=== PATIENT | male | born 1990 | race Caucasian/White ===

== ENCOUNTER 2023-06-23 18:33 | Emergency (ER) | payer MEDICAID, SELFPAY ==
[2023-06-23 18:34] VITALS: BP 127/80; PULSE 74; RESP 16; TEMP 36.1; O2SAT 100; BMI 22.9
--- NOTE | 2023-06-23 19:14 | ED.VIS.LOWEX ---
HPI History of Present Illness Chief Complaint: Lower Extremity Injury Informant: patient and parent Narrative Narrative: Presents for increasing pain in his toes after being stepped on at noon today. He is status post toe fractures 3 weeks ago after dropping a safe on it. Surgery performed 2 weeks ago in [facility]. He is visiting here for 3 days for an auction. He left his pain medications at home due to not needing it. Increasing pain since being stepped on. He has a boot on. He states the wires moved sideways. Prior similar symptoms: Yes PFSH PFSH Medical History no medical history Home Medications hydrocodone-acetaminophen 5-325mg 5mg-325mg 1 tab PO Q6H PRN PRN Pain 3 days #12 TABLETS 06/23/23 [Rx Last Taken Unknown] Allergy/AdvReac Type Severity Reaction Status Date / Time No Known Allergies Allergy Verified 06/23/23 18:34 Social History Smoking Status: Unknown if ever smoked ROS ROS ED Constitutional Constitutional ED: Denies chills, fever(s) or sweats Eyes Eyes: Denies change in vision ENT ENT ED: Denies dysphagia or sore throat Cardiovascular Cardiovascular: Denies chest pain, leg edema, palpitations or racing heartbeat Respiratory/Chest Respiratory/Chest: Denies cough, dyspnea or dyspnea on exertion Gastrointestinal Gastrointestinal: Denies abdominal pain, diarrhea, nausea or vomiting Genitourinary Genitourinary ED: Denies dysuria, hematuria or urinary frequency Musculoskeletal Musculoskeletal: Reports extremity pain; Denies back pain or neck pain Integumentary Denies rash or wounds Neurologic Neurologic: Denies headache(s), paresthesias or weakness EXAM Physical Exam Const Vital Signs: 06/23/23 18:34 Temperature 97.0 F L Temperature Source Temporal Pulse Rate 74 Respiratory Rate 16 Blood Pressure 127/80 H Blood Pressure Mean 95 Pulse Ox 100 Oxygen Delivery Method Room Air Positive well nourished and well developed General Appearance ED: well developed and NAD HEENT Reports moist mucous membranes normocephalic and atraumatic Eyes PERRL, EOMs intact bilaterally and conjunctivae normal General Eye ED: Yes normal appearance of both eyes Neck no lymphadenopathy and supple General: Negative for tenderness Chest Wall Chest: Negative for tenderness Resp normal respiratory effort and normal air movement Effort and Inspection: symmetric chest movement; Negative for respiratory distress Cardio regular rate, regular rhythm and no murmurs Peripheral Pulses: pulses 2+ throughout GI normal to inspection, nondistended, normoactive bowel sounds and non-tender Palpation: Negative for guarding or rebound tenderness present Back/Spine no CVA tenderness and no thoracic nor lumbar tenderness Extremity Extremity Narrative: Right lower extremity: Walking boot removed. K wires to the great toe second through third toe, great toe and second toe K wires rotated laterally in the upright with a preformed 90 degree angle. There is mild redness to the second great toe. No drainage. There was stitches to the lateral first metatarsal clean, dry, intact. General Extremety ED: Negative for edema or tenderness General Extremity: Negative for edema Neuro oriented x3 and no sensory deficits noted Sensorium / Orientation: awake and alert Skin no rashes or lesions noted and no wounds MDM MDM MDM Narrative Medical decision making narrative: Interventions / MDM: Differential diagnosis: Foot contusion, postop surgery, hardware malformation Diagnosis considered but do not suspect: N/A My EKG interpretation: N/A Imaging independently reviewed and interpreted by myself: Right foot x-ray 3 views: K wires intact, with healing fractures. External documents reviewed: N/A Test considered but not ordered:N/A ED course: Patient postop to crush injury. He is from out of town. Treated with [facility] x-ray obtained. [facility] report. Had no prescriptions in this state. X-ray notes K wires intact and not bent. Wires realigned by radiology department. 12 tabs were ordered for meds to bed to take as needed as he is here until Tuesday. Re-evaluation: stable Disposition discussed with patient/family/significant other: Patient Case discussed with consulting clinician: N/A This note was generated with [employer] dictation software. It may contain incorrect words, spelling, and punctuation that were not noted in checking the note before signing. Radiography Diagnostic Testing: Clinical Impression(s) from Imaging Studies Foot X-Ray 06/23/23 19:20 IMPRESSION: Healing fracture of the second and third metatarsal heads with postoperative changes first through third toes. Electronically Signed: Poonam Swift MD at 19:57 EDT , Discharge Plan Triage Chief Complaint: Lower Extremity Injury ED Provider: Brenton May Dx/Rx/DC Orders Clinical Impression: Post-op foreign body, Contusion of right foot Instructions: ED Foot Contusion Prescriptions: New hydrocodone-acetaminophen [hydrocodone-acetaminophen] 5-325 mg tablet 1 tab PO Q6H PRN PRN (Reason: Pain) 3 Days Qty: 12 0RF Primary Care Provider: Care Physician,No Primary Referrals: Care Physician,No Primary [Primary Care Provider] - Activity Restrictions/Additional Instructions: X-ray right foot notes K wires intact. Take pain medicine as prescribed. Follow-up with your surgeon back home. Disposition Disposition: Home, Self Care Discharge Date/Time: 06/23/23 20:49
[2023-06-23] MEDS: HYDROcodone Bitartrate/Apap 5/325 Tablet PO (19:16)
--- NOTE | 2023-06-23 19:20 | RAD_ITS ---
STUDY: X-RAY - RIGHT FOOT CLINICAL: Male, 32 years old. injury -- current wire- stepped on today TECHNIQUE: 3 view(s) of the foot. COMPARISON: None. FINDINGS: Normal talus, calcaneus, and tarsal bones. Normal visualized subtalar, talonavicular, calcaneocuboid, tarsal and tarsometatarsal articulations. Normal metatarsi. Status post pinning through the first second and third toes with healing fracture of the second, third metatarsal heads. Normal tibial and fibular sesamoid bones. Otherwise normal interphalangeal joint of the great toe. Normal phalanges of the great toe. Normal second through fifth metatarsophalangeal joints. Normal interphalangeal joints and phalanges of the lesser toes. The soft tissue structures are unremarkable. RAD/Foot min 3 Views IMPRESSION: Healing fracture of the second and third metatarsal heads with postoperative changes first through third toes. Electronically Signed: Poonam Swift MD at 19:57 EDT ,
== END 2023-06-23 20:49 | disposition home or self-care (01) ==
PROVIDERS: Emergency Provider Emergency Medicine; Visit Provider Emergency Medicine
DX: S92.901D Unspecified fracture of right foot, subsequent encounter for fracture with routine healing (principal); W20.8XXD Other cause of strike by thrown, projected or falling object, subsequent encounter
CPT/HCPCS: 73630; 99282